=== PATIENT | female | born 1935 | race Caucasian/White ===

== ENCOUNTER 2018-01-22 01:22 | Inpatient (IN) | payer OTHER ==
[~2018-01-22] VITALS: Ht 157.5 cm; Wt 67.2 kg
[~2018-01-22 01:22] MED LIST: AMBIEN10 M1 PO; ATORVASTATIN CA10 M1 PO; LOSARTAN-HCTZ1 EAC2 PO; SYNTHROID125 MCG PO; TOPROL XL25 M1 PO; VITAMIN B-121000 MC3 PO; VITAMIN C500 M7 PO; VITAMIN D3400 UNI1
--- NOTE | 2018-01-22 09:34 | Operative Report ---
Operative/Inv Procedure Report Surgery Date: 01/22/18 Name of Procedure: cystoscopy: bilateral injection of dye; bilateral stent insertion Pre-Operative Diagnosis: enterovaginal fistual Post-Operative Diagnosis: same Estimated Blood Loss: scant Surgeon/Supervisor Special Services: MD Darrell, Peterman-urology Anesthesia: general endotracheal tube Drains: 18 fr morris: bilat. 5mm stents (to be dc'd by dr. grayson at end of surgery) Specimens: urine culture Complications: none Operative/Procedure Note Note: After adequate anesthesia, and IV antibiotics, the patient was placed in lithotomy Yellow-fin stirrups. She was then draped and prepped in the usual surgical fashion, including a vaginal prep. A 22 Sami cystoscope sheath with a 30 angle lens was inserted into the bladder without significant difficulty. The bladder was thoroughly and systematically examined, and was noted to be free of tumor, free of stone, free of fistula. Both ureteral orifices were in their orthotopic positions with clear reflux bilaterally. A tiger tail stent was inserted into the left ureteral orifice where 7.5 cc of dye was injected retrograde. The tiger tail was removed and was then reinserted ureter orifice, where 7.5ml of dye was injected retrograde into the right ureter. The tiger tail was then removed. Under direct visualization. the left orifice was then intubated with a 5 Sami whistle-tip catheter, which was advanced easily into the left kidney pelvis with out difficulty. The right ureteral orifice was then intubated with a second 5 Sami ureteral whistle tip catheter, and advanced into the right renal pelvis without difficulty. For identification purposes: the blue marked stent went into the left kidney, and the right ureteral stent was marked red. Urine culture was obtained and sent to pathology. The cystoscope was then removed leaving both stents in proper place. An 18 Sami Morris catheter was inserted draining clear fluid and 10 mL of sterile water was then placed in the balloon. The ends ureteral stents, which protruded externally, were taped to the Morris catheter in order to secure their position. The individual ureteral stents were then connected to their individual drainage devices. All sponge needle and instrument count were correct at the end of this case. The patient tolerated the procedure well. The patient was then placed in supine position with Venodyne's in place. At this point, Dr. Grayson was able to proceed with his portion of the patient's surgery. Discharge Disposition: Proceed with Dr. Grayson CC: Roberto Ramírez MD
--- NOTE | 2018-01-22 15:52 | Operative Report ---
Operative/Inv Procedure Report Surgery Date: 01/22/18 Name of Procedure: 1. Robotic low anterior resection 2. Robotic mobilization of splenic flexure 3. Robotic lysis of adhesions lasting more than 2 hours 4. 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 Rectosigmoid 2. Additional rectal resection Complications: None Condition: Good Operative Indication: This is an 82-year-old female referred to me for evaluation of stool per vagina. 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 She underwent preoperative risk assessment and clearance. She was scheduled for surgery. Operative/Procedure Note Note: On the day before her procedure she did a bowel prep including oral laxatives and oral antibiotics. On the morning before she came to the hospital she drank 12 ounces of apple juice per our ERAS protocol. When she arrived at the hospital she received the usual ERAS premedications. She was taken to the operating room and placed in the supine position. She underwent induction of general anesthesia placed an endotracheal tube. Bilateral tap blocks were performed by the anesthesia department. Next the patient was converted to lithotomy position in [facility]. At this point Roberto Ramírez MD did cystoscopy with placement of bilateral ureteral stents and bilateral injection of ICG contrast into the ureters. Dr. Ramírez will dictate this portion of the operation. Next the patient was secured to the bed with both arms tucked and the abdomen and perineum were prepped in the usual fashion. We gained access to the abdominal cavity by using a Veress needle technique. The Veress needle was inserted on the left side in the midclavicular line just subcostal. The abdomen was insufflated to 15 mmHg. Next the ports were placed on a diagonal line drawn between the xiphoid process in the right lower quadrant. These ports were placed about 10 cm apart. The #1 #2 #3 ports were 8 mm ports. The #4 with a 12 mm port. An 8 mm community assistant port was placed in the right lower quadrant. Next the patient was placed in steep Trendelenburg right side down and then the robot was docked. The area of disease was clearly visible. Patient had a very fibrotic very inflamed and swollen distal sigmoid colon. This colon was stuck in the pelvis and along the left lateral lower abdomen. At this point I began the dissection. Using fire fly we could easily see the ureter on the right, however the left ureter was not immediately visible because the diseased colon was adherent in the left lower quadrant. Careful sharp dissection was then performed and this took several hours to free this inflamed colon from the left lateralretroperitoneum and abdominal sidewall as well as the anterior pelvic wall. Part of the dissection was done in the lateral to medial technique and part was done in a medial to lateral technique. I was able with the aid of firefight clearly identify the left ureter which remained protected in the retroperitoneum. After completely freeing the disease sigmoid colon, I completed my medial to lateral dissection. I followed the posterior avascular space of the rectum down to the mid rectum. I partially divided the lateral stalks and either side of the rectum using the robotic vessel sealer. Next the inferior mesenteric vascular pedicle was identified. The vessels were skeletonized. I then divided the vessels individually with the robotic vessel sealer distal to the takeoff of the left colic artery. Next I took down the white line of Toldt from the pelvic inlet all the way to the proximal descending colon. I chose my distal site of transection. The mesorectum was cleared here partly with electrocautery and partly with the vessel sealer. A robotic 45 mm blue cartridge CON stapler was used to divide the bowel. Next the robot was undocked. Using the previous scar a 4 cm midline incision was made just below the umbilicus. Wound protector was placed through this. We were able to pull the specimen up through this wound protector. I chose my proximal site of transection. The mesentery was cleared here partly with electrocautery and partly ligating larger bundles of tissue with 2-0 Vicryl suture. Sharply divided the bowel and the specimen was removed from the field. A handsewn pursestring was performed with 2-0 Prolene suture. A 28 EEA stapler was chosen for the anastomosis. The head of the anvil was placed into the lumen of the bowel and the pursestring was tied snugly around the PEG of the bowel. The cap was placed on the wound protector after reducing the bowel back into the abdominal cavity. When I attempted to pass the EEA sizers transanally it was apparent to me that they would not pass to the end of the Colindres's pouch. The proximal rectum was still very stenotic. It was also apparent to me that with the current length I would just about reach the pelvis for an anastomosis. I made a decision to resect more of the rectum to obtain a better staple line. The robot was re-docked. I resected another 4-5 cm of proximal rectum by once again first clearing the mesentery with the hot mauri and vessel sealer. Once again a blue load CON stapler was used to transect the additional portion of rectum. This specimen was placed into the pelvis. Next I prepared to take down the splenic flexure. Using table motion the patient was converted from steep Trendelenburg to slight reverse Trendelenburg. I continue to take the line of Toldt retrograde until I reached the splenic flexure. Next using the vessel sealer I completely took down the splenic flexure. The distal portion of the gastrocolic ligament was also taken down using the vessel sealer. At this point I felt I would have plenty of length. The robot was undocked. I was now able to easily passed the sizers to the end of the stapled rectum. The EEA stapler was passed transanally. Ankush was advanced. It emerged slightly to the right and slightly posterior to the CON staple line. The 2 ends of the stapler laparoscopically made. The CON stapler was completely closed and allowed to settle for 30 seconds. The staple was armed fired opened and retrieved. The colon donut was bulky and complete. The rectal donut was complete but very thin on one edge. The anastomotic leak test was then performed. The pelvis was filled with sterile saline. The bowel was gently occluded cephalad to the colorectal anastomosis with pressure. I performed a rigid sigmoidoscopy from below. I could see the staple line which appeared patent with no evidence of bleeding. The staple line appeared sound and there was no bubbling in the pelvis. At this point the fluid was aspirated out of the pelvis. The re-resected rectal specimen was grasped with a locking forceps. Pneumoperitoneum was let down. We were able to retrieve the re-resected rectal specimen via the wound protector. All dirty instruments and sponges were taken off the field and we prepared for closure. The extraction incision was closed with a running non-looped 0 PDS suture. The subcutaneous tissue was copiously irrigated here and then the skin was closed with skin jessica. The abdomen was cleansed and dried the robotic ports were closed with subcuticular 4-0 Monocryl and then skin glue was used to seal the dermis. A small island dressing was placed over the extraction incision. Next the ureteral catheters were removed and were completely intact. Patient was converted back to supine position. The patient was extubated in the operating room and tolerated the procedure well. She was taken to the recovery area in good condition. At the end of the procedure all needle sponges and isthmus were accounted for. Findings: Early in the procedure my community assistant had difficulty passing an instrument through the air seal port. At this point we realized the port had pulled back. While the port had been pulled back the insufflation had created some dissection in the subcutaneous space. This created more than usual subcutaneous emphysema. This did not appear to have any deleterious effects Discharge Disposition: Same Day Admissions
[2018-01-22 17:00] VITALS: BP 124/68
--- NOTE | 2018-01-22 18:47 | PN- General Surgery ---
Subjective Subjective: POST-OP NOTE No complaints. Denies nausea at the moment. Not interested in drinking clears currently. Aware of her subcutaneous emphysema. No shortness of breath. No chest pains. Not yet out of bed. Denies dizziness. She is excited about being allowed to chew gum. Objective Vital Signs and I&Os Vital Signs Date Time Temp Pulse Resp B/P B/P Pulse O2 O2 Flow FiO2 Mean Ox Delivery Rate 01/22 1816 Nasal 2.0L Cannula Intake & Output 01/22 1600 01/22 0800 01/22 0000 01/21 1600 01/21 0800 01/21 0000 Intake Total Output Total Balance Patient 150 lb Weight pacu flowsheet reviewed, vss Physical Exam: General - alert & oriented x 3. comfortable. no acute distress. extensive subcutaneous emphysema noted along her chest wall, extending up her neck and into her face / eyes Lungs - clear bilaterally. no w/r/r. Cardiac - s1s2. reg. Abdomen - soft. port incisions approximated with skin glue. midline island dressing c/d/i. no drains. - morris draining bloody urine, with few small clots Extremities - warm bilaterally. no c/c/e. calves soft and nontender b/l. athrombics active. Current Medications: Current Medications Sig/Kelly Start time Last Medication Dose Route Stop Time Status Admin Acetaminophen 1,000 MG Q6 01/22 1800 AC PO Acetaminophen 0 .STK-MED ONE 01/22 0710 DC PO Acetaminophen 1,000 MG ONCE 01/22 0000 DC PO 01/22 2359 Alvimopan 12 MG Q12 01/22 2100 AC PO Alvimopan 12 MG ONCE 01/22 0000 DC PO 01/22 2359 Atorvastatin Calcium 10 MG 1700 01/23 1700 AC PO Cefazolin Sodium 2,000 MG IQ8 01/22 2000 CAN IV 01/23 0801 Cefazolin Sodium 2 GM Q8H 01/22 2000 AC N/A 1 UNIT IV 01/23 0429 Dextrose/Sodium 1,000 ML .[id number] 01/22 1715 AC Chloride IV Fentanyl Citrate 250 MCG .STK-MED ONE 01/22 0739 DC IM 01/22 0740 Gabapentin 300 MG Q8 01/22 2200 AC PO Gabapentin 0 .STK-MED ONE 01/22 0711 DC PO Gabapentin 600 MG ONCE 01/22 0000 DC PO 01/22 2359 Heparin Sodium 5,000 UNIT Q8 01/22 2200 AC (Porcine) SC Hydrochlorothiazide 25 MG DAILY 01/23 09 AC PO Hydromorphone HCl 2 MG .STK-MED ONE 01/22 0739 DC IM 01/22 0740 Levothyroxine Sodium 0.125 MG DAILY AC 01/23 0700 AC PO Losartan Potassium 100 MG DAILY 01/23 09 AC PO Metoprolol Succinate 25 MG DAILY 01/23 09 AC PO Metronidazole 500 MG IQ8 01/22 1600 AC N/A 1 UNIT IV 01/23 0059 Midazolam HCl 2 MG .STK-MED ONE 01/22 0740 DC IM 01/22 0741 Ondansetron HCl 4 MG Q6P PRN 01/22 1715 AC IV Tramadol HCl 100 MG Q6-PRN PRN 01/22 1715 AC PO Tramadol HCl 50 MG Q6P PRN 01/22 1515 AC PO Zolpidem Tartrate 5 MG AT BEDTIME PRN 01/22 1515 AC PO Assessment/Plan Assessment/Plan This 82 year old female with history htn, hld, hypothyroidism, is POD#0 s/p robotic low anterior resection, robotic mobilization of splenic flexure, robotic lysis of adhesions lasting more than 2 hours, and rigid sigmoidoscopy, for history of complicated diverticulitis with colovaginal fistula and colonic stricture following ERAS protocol clears to advance to fulls as tolerated / ivf entereg q12 tylenol 1000mg q6 atc neurontin 300mg q8 atc ultram prn breakthrough pain gum chewing as desired silvana-operative ancef/flagyl x 2 doses d/c morris when bloody urine / clots clear f/u AM labs oob/ambulation hep sc - dvt ppx IST will d/w Core Measures Venous Thromboembolism VTE Risk Factors Surgery No Mechanical VTE Prophylaxis d/t N/A MechProphylax Ordered No VTE Pharm Prophylaxis d/t NA PharmProphylax ordered
--- NOTE | 2018-01-22 18:53 | Admission Core Measures ---
Acute Coronary Syndrome (CM) ACS Core Measures Acute Coronary Syndrome Diagnosis No Congestive Heart Failure (NEW) CHF Core Measures Congestive Heart Failure Diagnosis No Cerebrovascular Accident CVA Core Measures CVA/TIA Diagnosis No Venous Thromboembolism VTE Core Dario (View Protocol) VTE Risk Factors Surgery No Mechanical VTE Prophylaxis d/t N/A MechProphylax Ordered No VTE Pharm Prophylaxis d/t NA PharmProphylax ordered Problem List As ranked by this Provider includes Assessment & Plan 1. History of low anterior resection of rectum 2. Hypothyroidism 3. Hyperlipidemia 4. Hypertension 5. Colovaginal fistula 6. Diverticulitis of large intestine with complication HOME MEDS Home Med List Ascorbic Acid (Vitamin C) 500 MG CAPSULE.ER 1 CAP PO DAILY SUPPLEMENT ( Reported) Atorvastatin Calcium 10 MG TABLET 1 TAB PO DAILY CHOLESTEROL (Reported) Cyanocobalamin (Vitamin B-12) 1,000 MCG TABLET 1 TAB PO DAILY SUPPLEMENT ( Reported) Levothyroxine Sodium (Synthroid) 125 MCG TABLET 1 TAB PO DAILY REPLACEMENT ( Reported) Losartan/Hydrochlorothiazide (Losartan-Hctz 100-25 MG Tab) 100 MG-25 MG TABLET 1 TAB PO DAILY HTN (Reported) Metoprolol Succ XL (Toprol XL) 25 MG TAB 1 TAB PO DAILY HTN (Reported) Zolpidem Tartrate (Ambien) 10 MG TABLET 1 TAB PO QPMP SLEEP (Reported)
[2018-01-22 19:59] VITALS: BP 124/72
[2018-01-22 23:16] VITALS: BP 118/76
[2018-01-22 23:44] VITALS: BP 110/56
[2018-01-23 02:25] VITALS: BP 110/53
[2018-01-23 06:03] VITALS: BP 112/58
[2018-01-23 10:15] LABS: ABSOLUTE BASOPHIL COUNT 0 /CUMM (0.0-0.2); ABSOLUTE EOSINOPHIL COUNT 0 /CUMM (0.0-0.7); ABSOLUTE GRANULOCYTE CT 8.7 /CUMM (1.4-6.5); ABSOLUTE LYMPH COUNT 1.4 /CUMM (1.2-3.4); ABSOLUTE MONOCYTE COUNT 0.7 /CUMM (0.10-0.60); BASOPHIL % 0.1 % (0.0-2.0); EOSINOPHIL % 0.2 % (0-5); GRANULOCYTE % 80.2 % (42.2-75.2); HEMATOCRIT 33.3 % (37-47); MEAN CORPUSCULAR HGB CONC 33.8 G/DL (33.0-37.0); MEAN CORPUSCULAR VOLUME 91.9 FL (81.0-99.0); MEAN PLATELET VOLUME 7.9 FL (7.4-10.4); PLATELET COUNT 233 /CUMM (130-400); RBC DISTRIBUTION WIDTH 13.2 % (11.5-14.5); RED BLOOD CELL CT 3.62 /CUMM (4.20-5.40); WHITE BLOOD CELL COUNT 10.9 /CUMM (4.8-10.8)
[2018-01-23 10:51] VITALS: BP 120/50
--- NOTE | 2018-01-23 11:03 | PN- General Surgery ---
See Addendum Subjective Subjective: Patient without complaints, minimal pain, only complains of soreness left side abdomen, no fever no flulike illness no nausea no vomiting no acute events overnight, tolerating a clear liquid diet, she is hungry Objective Vital Signs and I&Os Vital Signs Date Time Temp Pulse Resp B/P B/P Pulse O2 O2 Flow FiO2 Mean Ox Delivery Rate 01/23 1051 55 20 120/50 100 Nasal Cannula 01/23 0827 55 112/58 01/23 0827 55 112/58 01/23 0800 100 Nasal 2.0L Cannula 01/23 0603 97.4 55 18 112/58 100 01/23 0600 96 Nasal 2.0L Cannula 01/23 0225 97.4 58 18 110/53 100 01/23 0000 95 Nasal 2.0L Cannula 01/23 0000 95 Nasal 2.0L Cannula 01/22 2344 91.1 58 19 110/56 98 01/22 2316 91.2 59 20 118/76 98 01/22 2200 97 Nasal 2.0L Cannula 01/22 1959 91.1 57 20 124/72 98 01/22 1816 Nasal 2.0L Cannula 01/22 1700 97.4 72 20 124/68 97 Nasal 2.0L Cannula 01/22 1700 98 Nasal 2.0L Cannula Intake & Output 01/23 1600 01/23 0800 01/23 0000 01/22 1600 01/22 0800 01/22 0000 Intake Total 840 400 Output Total 450 425 Balance 390 -25 Intake, IV 600 400 Intake, Oral 240 Output, Urine 450 425 Patient 148 lb 158 lb Weight Weight Estimated Measurement Method Physical Exam: Well-developed well-nourished no apparent distress. HEENT: Atraumatic, extraocular motion intact Neck: Supple, no lymphadenopathy Respiratory: No respiratory distress Abdomen: Dressings clean dry and intact, minimal abdominal distention, appropriate tenderness left side upper abdominal region, no tympany, no peritoneal signs Morris in place, small amount of sediment noted, clear yellow urine otherwise Extremities: No edema, no calf pain Neuro: Alert and oriented x3 Psych: Mood affect normal, normal memory normal judgment. Skin: Warm and dry, no rash on exposed skin Results Last 48 Hours of Labs: Laboratory Tests 01/23 0850 Chemistry Sodium (137 - 145 mmol/L) 139 Potassium (3.5 - 5.1 mmol/L) 3.4 L Chloride (98 - 107 mmol/L) 104 Carbon Dioxide (22 - 30 mmol/L) 25 Anion Gap (5 - 16) 10 BUN (7 - 17 mg/dL) 13 Creatinine (0.5 - 1.0 mg/dL) 0.7 Estimated GFR (>60 ml/min) > 60 BUN/Creatinine Ratio (7 - 25 %) 18.6 Hematology CBC w Diff NO MAN DIFF REQ WBC (4.8 - 10.8 /CUMM) 10.9 H RBC (4.20 - 5.40 /CUMM) 3.62 L Hgb (12.0 - 16.0 G/DL) 11.2 L Hct (37 - 47 %) 33.3 L MCV (81.0 - 99.0 FL) 91.9 MCH (27.0 - 31.0 PG) 31.0 MCHC (33.0 - 37.0 G/DL) 33.8 RDW (11.5 - 14.5 %) 13.2 Plt Count (130 - 400 /CUMM) 233 MPV (7.4 - 10.4 FL) 7.9 Gran % (42.2 - 75.2 %) 80.2 H Lymphocytes % (20.5 - 51.1 %) 12.7 L Monocytes % (1.7 - 9.3 %) 6.8 Eosinophils % (0 - 5 %) 0.2 Basophils % (0.0 - 2.0 %) 0.1 Absolute Granulocytes (1.4 - 6.5 /CUMM) 8.7 H Absolute Lymphocytes (1.2 - 3.4 /CUMM) 1.4 Absolute Monocytes (0.10 - 0.60 /CUMM) 0.7 H Absolute Eosinophils (0.0 - 0.7 /CUMM) 0 Absolute Basophils (0.0 - 0.2 /CUMM) 0 Assessment/Plan Assessment/Plan This 82 year old female with history htn, hld, hypothyroidism, is POD#1 s/p robotic low anterior resection, robotic mobilization of splenic flexure, robotic lysis of adhesions lasting more than 2 hours, and rigid sigmoidoscopy, for history 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 stable, doing very well. following ERAS protocol advance to fulls, dc ivf entereg q12 tylenol 1000mg q6 atc neurontin 300mg q8 atc ultram prn breakthrough pain gum chewing as desired silvana-operative abx completed d/c morris when bloody urine / clots clear oob/ambulation hep sc - dvt ppx IST Core Measures Venous Thromboembolism VTE Risk Factors Surgery No Mechanical VTE Prophylaxis d/t N/A MechProphylax Ordered No VTE Pharm Prophylaxis d/t NA PharmProphylax ordered
[2018-01-23 14:58] VITALS: BP 110/48
[2018-01-23] MEDS ORDERED: TRAMADOL HCL50 M1 PO (19:35)
[2018-01-23] MEDS ORDERED: ACETAMINOPHEN500 M4 PO (19:35)
[2018-01-23] MEDS ORDERED: GABAPENTIN300 M2 PO (19:35)
--- NOTE | 2018-01-23 19:37 | Patient Discharge Instructions ---
Discharge Instructions General Discharge Information You were seen/treated for: Name of Procedure: 1. Robotic low anterior resection 2. Robotic mobilization of splenic flexure 3. Robotic lysis of adhesions lasting more than 2 hours 4. 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 Continue the Neurontin for pain 3 times a day. Low fiber diet PLEASE CALL YOUR PRIMARY CARE PHYSICIAN TO FOLLOW UP ON LOW POTASSIUM LEVEL UPON DISCHARGE FROM HOSPITAL. Diet Continue normal diet: No Recommended Diet: Low Residue Activity Full Activity/No Limits: No Activity Self Limited: Yes Pounds, do NOT lift more than: 10 Acute Coronary Syndrome Inclusion Criteria At DC or during hospital stay patient has or had the following: ACS DIAGNOSIS No Discharge Core Measures Meds if any: Prescribed or Continued at Discharge Meds if any: NOT Prescribed or Continued at Discharge Congestive Heart Failure Inclusion Criteria At DC or during hospital stay patient has or had the following: CHF DIAGNOSIS No Discharge Core Measures Meds if any: Prescribed or Continued at Discharge Meds if any: NOT Prescribed or Continued at Discharge Cerebrovascular accident Inclusion Criteria At DC or during hospital stay patient has or had the following: CVA/TIA Diagnosis No Discharge Core Measures Meds if any: Prescribed or Continued at Discharge Meds if any: NOT Prescribed or Continued at Discharge Venous thromboembolism Inclusion Criteria VTE Diagnosis No VTE Type NONE VTE Confirmed by (Test) NONE Discharge Core Measures - Per Current guidelines, there needs to be overlap - treatment for the first 5 days of Warfarin therapy. - If discharged on Warfarin prior to 5 days of - overlap therapy, the patient will need to be - assessed for post discharge needs including - *Post discharge parental anticoagulation - *Warfarin and/or parental anticoagulation education - *Follow up date to check INR post discharge At least 5 days overlap therapy as Inpatient No Meds if any: Prescribed or Continued at Discharge Note: Overlap Therapy is Warfarin and Anticoagulant Meds if any: NOT Prescribed or Continued at Discharge
--- NOTE | 2018-01-23 19:43 | Surg Short-stay <48hrs Dis Sum ---
Visit Information Visit Dates Admission Date: 01/22/18 Discharge Date: 01/25/18 Surgical Short Stay DC Summary Admission Diagnosis: Name of Procedure: 1. Robotic low anterior resection 2. Robotic mobilization of splenic flexure 3. Robotic lysis of adhesions lasting more than 2 hours 4. 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 Condition at Discharge: Good Discharge Disposition: home or self care Discharge instructions provided to patient/family: Yes Post discharge follow-up plan: Follow-up with Dr. Camargo in 7-10 days
[2018-01-23 21:08] VITALS: BP 122/64
[2018-01-24 07:11] VITALS: BP 117/56
--- NOTE | 2018-01-24 07:49 | PN- General Surgery ---
Sharon Penaa 01/24/18 0744: Subjective Subjective: Patient doing very well, reports no abdominal pain, passing gas, no BM yet Objective Vital Signs and I&Os Vital Signs Date Time Temp Pulse Resp B/P B/P Pulse O2 O2 Flow FiO2 Mean Ox Delivery Rate 01/24 0711 97.6 63 20 117/56 98 01/24 0600 94 Room Air 01/24 0000 94 Room Air 01/23 2200 98 Room Air 01/23 2108 97.5 66 20 122/64 98 Room Air 01/23 1458 97.5 60 20 110/48 100 Nasal Cannula 01/23 1400 100 Nasal 2.0L Cannula 01/23 1051 55 20 120/50 100 Nasal Cannula 01/23 0827 55 112/58 01/23 0827 55 112/58 01/23 0800 100 Nasal 2.0L Cannula Intake & Output 01/24 0800 01/24 0000 01/23 1600 01/23 0800 01/23 0000 01/22 1600 Intake Total 096 372 3306 840 400 Output Total 1000 350 400 450 425 Balance -160 -230 795 390 -25 Intake, IV 600 575 600 400 Intake, Oral 240 120 620 240 Number 1 0 Bowel Movements Output, Urine 1000 350 400 450 425 Patient 148 lb 158 lb Weight Weight Estimated Measurement Method Physical Exam: VSS, afebrile heart- RRR chest-CTA ABD -soft without distention generalized soreness, portal sites CDI, incision site -dressing changes- no drainage or cellulitis morris with no blood or debree calves soft bilaterally and distal pulses intact Assessment/Plan Assessment/Plan 82 Y/O female with history htn, hld, hypothyroidism, is POD#2 s/p robotic low anterior resection, robotic mobilization of splenic flexure, robotic lysis of adhesions and rigid sigmoidoscopy, for history 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 following ERAS protocol advance to fulls entereg q12 tylenol 1000mg q6 atc neurontin 300mg q8 atc ultram prn breakthrough pain gum chewing as desired oob/ambulation hep sc - dvt ppx Core Measures Venous Thromboembolism VTE Risk Factors Surgery No Mechanical VTE Prophylaxis d/t N/A MechProphylax Ordered No VTE Pharm Prophylaxis d/t NA PharmProphylax ordered Philip Zazueta MD 01/24/18 1032: Attending MD Review Statement Attending Statement Attending Assessment/Plan: Surgical Attending Patient examined and chart reviewed Abdomen is soft and non tender Agree with assessment and plan Likely home tomorrow
[2018-01-24 14:39] VITALS: BP 105/50
[2018-01-24 22:44] VITALS: BP 125/55
[2018-01-25 06:07] VITALS: BP 141/71
--- NOTE | 2018-01-25 07:35 | PN- Student ---
Miguel Samsley 01/25/18 0728: Subjective Subjective: This morning the pt states that she has no complaints. She is feeling great and would like to get home. Overnight, the pt's vitals were WNL and there were no acute events. The pt has passed two loose stools and has been passing gas/ urinating fine. Pt denies any cp, sob, chest tightness, n/v, abdominal pain. Pt is on a full diet and tolerating that well. Objective Objective: Intake & Output 01/25 0800 01/25 0000 01/24 1600 Intake Total 103 613 1429 Output Total 200 200 700 Balance 520 300 495 Intake, IV 600 300 575 Intake, Oral 120 200 620 Number 2 Bowel Movements Output, Urine 200 200 700 Laboratory Tests 01/25 0645 Chemistry Sodium Pending Potassium Pending Chloride Pending Carbon Dioxide Pending Anion Gap Pending BUN Pending Creatinine Pending BUN/Creatinine Ratio Pending Hematology CBC w Diff Pending WBC Pending RBC Pending Hgb Pending Hct Pending MCV Pending MCH Pending MCHC Pending RDW Pending Plt Count Pending MPV Pending Gen: O&Ax3, in no distress HEENT: PERRL Lungs: CTA throughout C/V: S1 and S2 normal. RRR. 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 Plan: -Pt is on low residual diet tolerating well -Trevino out, urinating well -Pt passed BM and flatus, d/c entereg -Encourage oob, ambulation, IS -Continue w/ toprol xl -Perioperative abx complete -ERAS protocol for pain control, well tolerated at this time -Heparin sq and ALPS for dvt ppx -Pt shoudl be ready for d/c today, will d/w attending Maci Kaur 01/25/18 1131: Assessment/Plan Assessment: did not see pateint, please review note from surgical pa
[2018-01-25 07:57] LABS: ABSOLUTE BASOPHIL COUNT 0 /CUMM (0.0-0.2); ABSOLUTE EOSINOPHIL COUNT 0.1 /CUMM (0.0-0.7); ABSOLUTE GRANULOCYTE CT 9.5 /CUMM (1.4-6.5); ABSOLUTE LYMPH COUNT 1.2 /CUMM (1.2-3.4); ABSOLUTE MONOCYTE COUNT 0.4 /CUMM (0.10-0.60); BASOPHIL % 0.3 % (0.0-2.0); EOSINOPHIL % 1.1 % (0-5); GRANULOCYTE % 84.3 % (42.2-75.2); HEMATOCRIT 32.1 % (37-47); MEAN CORPUSCULAR HGB 30.9 PG (27.0-31.0); MEAN CORPUSCULAR HGB CONC 33.4 G/DL (33.0-37.0); MEAN CORPUSCULAR VOLUME 92.5 FL (81.0-99.0); MEAN PLATELET VOLUME 8.1 FL (7.4-10.4); PLATELET COUNT 255 /CUMM (130-400); RBC DISTRIBUTION WIDTH 13.3 % (11.5-14.5); RED BLOOD CELL CT 3.48 /CUMM (4.20-5.40)
[2018-01-25] MEDS ORDERED: TYLENOL EXTRA500 M2 PO (08:05)
[2018-01-25] MEDS ORDERED: GABAPENTIN300 M2 PO (08:05)
[2018-01-25] MEDS ORDERED: TRAMADOL HCL50 M1 PO (08:05)
--- NOTE | 2018-01-25 08:09 | PN- General Surgery ---
See Addendum Subjective Subjective: pt in bed, no pain. tolerating low residue diet, had 2 BMs yesterday. no nausea voiding. ambulating. denies fever, cp/sob Objective Vital Signs and I&Os Vital Signs Date Time Temp Pulse Resp B/P B/P Pulse O2 O2 Flow FiO2 Mean Ox Delivery Rate 01/25 0607 97.8 67 19 141/71 95 01/25 0600 99 Room Air 01/24 2244 98.6 70 20 125/55 99 Room Air 01/24 2200 99 Room Air 01/24 1439 97.7 69 20 105/50 99 Room Air 01/24 1400 98 Room Air 01/24 0843 63 117/56 01/24 0843 63 117/56 Intake & Output 01/25 1600 01/25 0800 01/25 0000 01/24 1600 01/24 0800 01/24 0000 Intake Total 774 580 3153 840 120 Output Total 200 174 244 1440 350 Balance 520 300 495 -160 -230 Intake, IV 600 300 575 600 Intake, Oral 120 200 620 240 120 Number 2 1 Bowel Movements Output, Urine 200 291 524 4638 350 Physical Exam: gen- NAD, subcu air felt in chest and upper extremities resp-clear cardiac- rrr abd- nd, soft, +bs, incisions clean and dry. midline incision with jessica in place, no drainage no signs of infection. dressing removed, open to air ext- warm and dry, no calf tenderness Current Medications: Current Medications Sig/Kelly Start time Last Medication Dose Route Stop Time Status Admin Acetaminophen 1,000 MG Q6 01/22 1800 AC 01/25 PO 0516 Alvimopan 12 MG Q12 01/22 2100 DC 01/24 PO 2138 Atorvastatin Calcium 10 MG 1700 01/23 1700 AC 01/24 PO 1607 Dextrose/Sodium 1,000 ML .[id number] 01/22 1715 DC 01/24 Chloride IV 2149 Gabapentin 300 MG Q8 01/22 220 AC 01/25 PO 0517 Heparin Sodium 5,000 UNIT Q8 01/22 2200 AC 01/25 (Porcine) SC 0517 Hydrochlorothiazide 25 MG DAILY 01/23 09 AC 01/24 PO 0844 Levothyroxine Sodium 0.125 MG DAILY AC 01/23 07 AC 01/25 PO 0516 Losartan Potassium 100 MG DAILY 01/23 0900 AC 01/24 PO 0843 Metoprolol Succinate 25 MG DAILY 01/23 0900 AC 01/24 PO 0843 Ondansetron HCl 4 MG Q6P PRN 01/22 1715 AC IV Tramadol HCl 100 MG Q6-PRN PRN 01/22 1715 AC PO Tramadol HCl 50 MG Q6P PRN 01/22 1515 AC PO Zolpidem Tartrate 5 MG AT BEDTIME PRN 01/22 1515 AC 01/24 PO 2138 Results Last 48 Hours of Labs: Laboratory Tests 01/25 01/23 0645 0850 Chemistry Sodium (137 - 145 mmol/L) Pending 139 Potassium (3.5 - 5.1 mmol/L) Pending 3.4 L Chloride (98 - 107 mmol/L) Pending 104 Carbon Dioxide (22 - 30 mmol/L) Pending 25 Anion Gap (5 - 16) Pending 10 BUN (7 - 17 mg/dL) Pending 13 Creatinine (0.5 - 1.0 mg/dL) Pending 0.7 Estimated GFR (>60 ml/min) > 60 BUN/Creatinine Ratio (7 - 25 %) Pending 18.6 Hematology CBC w Diff Pending NO MAN DIFF REQ WBC (4.8 - 10.8 /CUMM) Pending 10.9 H RBC (4.20 - 5.40 /CUMM) Pending 3.62 L Hgb (12.0 - 16.0 G/DL) Pending 11.2 L Hct (37 - 47 %) Pending 33.3 L MCV (81.0 - 99.0 FL) Pending 91.9 MCH (27.0 - 31.0 PG) Pending 31.0 MCHC (33.0 - 37.0 G/DL) Pending 33.8 RDW (11.5 - 14.5 %) Pending 13.2 Plt Count (130 - 400 /CUMM) Pending 233 MPV (7.4 - 10.4 FL) Pending 7.9 Gran % (42.2 - 75.2 %) 80.2 H Lymphocytes % (20.5 - 51.1 %) 12.7 L Monocytes % (1.7 - 9.3 %) 6.8 Eosinophils % (0 - 5 %) 0.2 Basophils % (0.0 - 2.0 %) 0.1 Absolute Granulocytes (1.4 - 6.5 /CUMM) 8.7 H Absolute Lymphocytes (1.2 - 3.4 /CUMM) 1.4 Absolute Monocytes (0.10 - 0.60 /CUMM) 0.7 H Absolute Eosinophils (0.0 - 0.7 /CUMM) 0 Absolute Basophils (0.0 - 0.2 /CUMM) 0 Assessment/Plan Assessment/Plan 82 Y/O female with history htn, hld, hypothyroidism, is POD#3 s/p robotic low anterior resection, robotic mobilization of splenic flexure, robotic lysis of adhesions and rigid sigmoidoscopy, for history 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 has subcutaneous emphysema, resolving following ERAS protocol cont low residue diet DC entereg- pt having BMs pain management- presriptions sent to retail pharmacy encourage IS gum chewing as desired oob/ambulation hep sc - dvt ppx DC to home today, pt to FU with dr Caamrgo in 1 wk Core Measures Venous Thromboembolism VTE Risk Factors Surgery No Mechanical VTE Prophylaxis d/t N/A MechProphylax Ordered No VTE Pharm Prophylaxis d/t NA PharmProphylax ordered
[2018-01-25 08:36] VITALS: BP 141/71
[2018-01-25 09:15] LABS: WHITE BLOOD CELL COUNT 11.3 /CUMM (4.8-10.8)
[2018-01-25] MEDS ORDERED: KLOR-CON M1010 ME1 PO (10:27)
== END 2018-01-25 11:09 | DRG 330 ==
LOC: SDA 01:22 → ENRESERV 16:01 → ENTRNSPT 16:29 → EDTRNSPTSTS 16:54 → 2NB 17:01 → CMPTRNSPT 17:31 → ENPENDDIS 01-25 08:10 → ENTRNSPT 01-25 10:53 → EDTRNSPTSTS 01-25 11:04 → EDTRNSPT 01-25 11:04 → 2NB 01-25 11:09 → CMPTRNSPT 01-25 11:23
PROVIDERS: Physician Assistant
PROC: 0DTN4ZZ Resection of Sigmoid Colon, Percutaneous Endoscopic Approach (ICD-10-PCS; principal; 2018-01-22)
PROC: 0DN Gastrointestinal System, Release (ICD-10-PCS; 2018-01-22)
PROC: 8E0W4CZ Robotic Assisted Procedure of Trunk Region, Percutaneous Endoscopic Approach (ICD-10-PCS; 2018-01-22)
PROC: 0DTP4ZZ Resection of Rectum, Percutaneous Endoscopic Approach (ICD-10-PCS; 2018-01-22)
PROC: 0T788DZ Dilation of Bilateral Ureters with Intraluminal Device, Via Natural or Artificial Opening Endoscopic (ICD-10-PCS; 2018-01-22)
PROC: 3E0T3BZ Introduction of Anesthetic Agent into Peripheral Nerves and Plexi, Percutaneous Approach (ICD-10-PCS; 2018-01-22)
DX: N82.4 Other female intestinal-genital tract fistulae (principal); K57.32 Diverticulitis of large intestine without perforation or abscess without bleeding; I10 Essential (primary) hypertension; E78.5 Hyperlipidemia, unspecified; Z98.1 Arthrodesis status; Z90.710 Acquired absence of both cervix and uterus; E89.0 Postprocedural hypothyroidism
CPT/HCPCS: 2NBSP; 36415; 36592; 82436; 87086; C9290; J0690; J1644; J3490; J7042